=== PATIENT | male | born 1980 | race Hispanic/Latino ===

== ENCOUNTER 2017-01-09 23:37 | Emergency (ER) | payer OTHER ==
[~2017-01-09] VITALS: Ht 175.3 cm; Wt 86.6 kg
== END 2017-01-10 02:10 | disposition home or self-care (01) ==
LOC: ED 23:37
DX: S01.01XA Laceration without foreign body of scalp, initial encounter (principal); W21.05XA Struck by basketball, initial encounter
CPT/HCPCS: 99282